=== PATIENT | female | born 1980 | race American Indian/Alaskan Native ===

== ENCOUNTER 2016-12-25 18:07 | Emergency (ER) | payer OTHER ==
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
[2016-12-26] MEDS ORDERED: TORADOL IM ONE (00:25)
[2016-12-26] MEDS ORDERED: TORADOL ONE (00:39)
[2016-12-26 00:50] VITALS: BP 115/87
== END 2016-12-26 00:50 | disposition home or self-care (01) ==
LOC: ED 18:07
DX: S16.1XXA Strain of muscle, fascia and tendon at neck level, initial encounter (principal); S39.012A Strain of muscle, fascia and tendon of lower back, initial encounter; G43.909 Migraine, unspecified, not intractable, without status migrainosus; F17.200 Nicotine dependence, unspecified, uncomplicated; V89.2XXA Person injured in unspecified motor-vehicle accident, traffic, initial encounter; Y93.9 Activity, unspecified; Y99.9 Unspecified external cause status; Y92.410 Unspecified street and highway as the place of occurrence of the external cause
CPT/HCPCS: 96372; 99282; J1885

== ENCOUNTER 2019-01-13 18:41 | Emergency (ER) | payer OTHER ==
[2019-01-13] MEDS ORDERED: ZOFRAN ODT PO ONE (18:44)
[2019-01-13] MEDS ORDERED: ZOFRAN ODT ONE (18:47)
--- NOTE | 2019-01-13 20:40 | Emergency Department Report ---
Blank Doc - Documentation Documentation: reports abdominal cramping nausea and vomiting . Ate multiple food yeaterday and woke up feeling sick. Abdominal pain epigastric area. 04/20. Vomiting several times throughout the day. Vomit 6 x while in ED. No diarrhea/ LMP 2-3 mos ago. usually irreg. No fever/chills. no urinary symptoms Nontoxic in apperance VSS, afeb received 8 mg zofran ODT in ed for nausea and vomiting Noted active vomiting in triage Labs, meds, INT
[2019-01-13] MEDS ORDERED: ALUM-MAG HYDROX-SIMETH 200-200-20MG/5ML PO ONE (20:43)
[2019-01-13] MEDS ORDERED: ZOFRAN IV ONE (20:43)
[2019-01-13] MEDS ORDERED: NACL 0.9% 1000 ML 1,000 ML IV ONE (20:43)
[2019-01-13] MEDS ORDERED: BENTYL PO ONE (20:43)
[2019-01-13] MEDS ORDERED: LIDOCAINE VISCOUS 2% PO ONE (20:43)
[2019-01-13 21:24] LABS: Basophils # (Auto) 0.1 K/mm3 (0.0-0.1); Basophils % (Auto) 0.4 % (0.0-1.8); Hematocrit 34.4 % (30.3-42.9); Lymphocytes % (Auto) 8.1 % (13.4-35.0); Mean Corpuscular HGB Conc 32 % (30-34); Mean Corpuscular Volume 73 fl (79-97); Monocytes # (Auto) 0.4 K/mm3 (0.0-0.8); Platelet Count 413 K/mm3 (140-440); Red Blood Count 4.73 M/mm3 (3.65-5.03); Red Cell Distribution Width 18.3 % (13.2-15.2)
[2019-01-13 21:42] LABS: Alanine Aminotransferase 11 units/L (7-56); Albumin 3.8 g/dL (3.9-5); BUN/Creatinine Ratio 21; Blood Urea Nitrogen 15 mg/dL (7-17); Calcium 9.7 mg/dL (8.4-10.2); Hemolysis Index 7
[2019-01-13] MEDS ORDERED: ALUM-MAG HYDROX-SIMETH 200-200-20MG/5ML ONE (23:05)
[2019-01-13] MEDS ORDERED: ZOFRAN ONE (23:06)
[2019-01-13 23:18] LABS: Bilirubin,Urine NEG (Negative); Blood,Urine NEG (Negative); Color,Urine Yellow (Yellow); Mucus,Urine FEW /HPF; Protein,Urine <15 mg/dL mg/dL (Negative); Urobilinogen,Urine < 2.0 mg/dL (<2.0)
[2019-01-13 23:25] LABS: HCG Qualitative,Urine Negative (Negative)
[2019-01-13] MEDS ORDERED: MORPHINE IV ONE (23:44)
[2019-01-13] MEDS ORDERED: PEPCID IV ONE (23:45)
[2019-01-14] MEDS ORDERED: REGLAN IV ONE (01:16)
[2019-01-14] MEDS ORDERED: BENADRYL IV ONE (01:16)
[2019-01-14] MEDS ORDERED: REGLAN ONE (01:18)
--- NOTE | 2019-01-14 01:24 | Emergency Department Report ---
ED N/V/D HPI - General Chief complaint: Abdominal Pain Stated complaint: ABDOMINAL PAIN/VOMITING Time Seen by Provider: 01/13/19 20:34 Source: patient Mode of arrival: Ambulatory Limitations: No Limitations - History of Present Illness Initial comments: Patient is a 38-year-old AA female with no past medical history who presents to the ED with complaint of acute onset of persistent intermittent nausea and vomiting for the last 24 hours worse in the last 6 hours with epigastric pain. Patient states that she cannot remember what she ate exactly but that she did a lot of food 24 hours ago. Patient states that no one else at home has had similar symptoms. Patient denies fever, chills, chest pain, shortness of breath, dizziness, headache, dysuria, urinary frequency and urgency, vaginal bleeding, vaginal discharge, back pain, change in vision or neck pain and sore throat. Patient states that she's not been able to keep anything down both liquids and solids for the last 12 hours. MD complaint: nausea, vomiting, abdominal pain -: Sudden, hour(s) (24) Description of Vomiting: food contents, watery, bilious Description of Diarrhea: other (None) Associated Abdominal Pain: Yes (EPIGASTRIC) Location: epigastric Radiation: none Severity: severe Pain Scale: 7 Quality: cramping, aching Improves with: none Worsens with: eating, vomiting Context: possible food poisoning Associated Symptoms: denies other symptoms, nausea/vomiting. denies: myalgias, chest pain, cough, diaphoresis, fever/chills, headaches, loss of appetite, malaise, rash, dysuria, shortness of breath, syncope, weakness - Related Data Previous Rx's Medication Instructions Recorded Last Taken Type Cyclobenzaprine [Flexeril] 10 mg PO TID PRN #30 tablet 12/26/16 Unknown Rx Naproxen [Naprosyn TAB] 500 mg PO BID PRN #60 tablet 12/26/16 Unknown Rx Dicyclomine [Bentyl] 20 mg PO Q6H #24 tablet 01/14/19 Unknown Rx Ondansetron [Zofran ODT TAB] 8 mg PO Q8HR #21 tab.rapdis 01/14/19 Unknown Rx Ranitidine HCl [Zantac] 150 mg PO Q12H #30 tablet 01/14/19 Unknown Rx metFORMIN [Glucophage] 500 mg PO Q12H #60 tablet 01/14/19 Unknown Rx Allergies Allergy/AdvReac Type Severity Reaction Status Date / Time No Known Allergies Allergy Verified 01/13/19 18:44 ED Review of Systems ROS: Stated complaint: ABDOMINAL PAIN/VOMITING Other details as noted in HPI Constitutional: denies: chills, fever Eyes: denies: eye pain, eye discharge, vision change ENT: denies: ear pain, throat pain Respiratory: denies: cough, shortness of breath, wheezing Cardiovascular: denies: chest pain, palpitations Endocrine: no symptoms reported Gastrointestinal: abdominal pain, nausea, vomiting. denies: diarrhea, hematemesis, hematochezia Genitourinary: denies: urgency, dysuria, discharge Musculoskeletal: denies: back pain, joint swelling, arthralgia Skin: denies: rash, lesions Neurological: denies: headache, weakness, paresthesias Psychiatric: denies: anxiety, depression Hematological/Lymphatic: denies: easy bleeding, easy bruising ED Past Medical Hx - Past Medical History Previous Medical History?: Yes Hx Headaches / Migraines: Yes - Surgical History Past Surgical History?: No - Social History Smoking Status: Current Every Day Smoker - Medications Home Medications: Home Medications Medication Instructions Recorded Confirmed Last Taken Type Cyclobenzaprine [Flexeril] 10 mg PO TID PRN #30 tablet 12/26/16 Unknown Rx Naproxen [Naprosyn TAB] 500 mg PO BID PRN #60 tablet 12/26/16 Unknown Rx Dicyclomine [Bentyl] 20 mg PO Q6H #24 tablet 01/14/19 Unknown Rx Ondansetron [Zofran ODT TAB] 8 mg PO Q8HR #21 tab.rapdis 01/14/19 Unknown Rx Ranitidine HCl [Zantac] 150 mg PO Q12H #30 tablet 01/14/19 Unknown Rx metFORMIN [Glucophage] 500 mg PO Q12H #60 tablet 01/14/19 Unknown Rx ED Physical Exam - General Limitations: No Limitations General appearance: alert, in no apparent distress - Head Head exam: Present: atraumatic, normocephalic, normal inspection - Eye Eye exam: Present: normal appearance, PERRL, EOMI. Absent: scleral icterus, conjunctival injection, nystagmus Pupils: Present: normal accommodation - ENT ENT exam: Present: normal exam, normal orophraynx, mucous membranes moist, TM's normal bilaterally, normal external ear exam - Neck Neck exam: Present: normal inspection, full ROM. Absent: tenderness - Respiratory Respiratory exam: Present: normal lung sounds bilaterally. Absent: respiratory distress, wheezes, rales, stridor, chest wall tenderness, accessory muscle use, decreased breath sounds, prolonged expiratory - Cardiovascular Cardiovascular Exam: Present: normal rhythm, bradycardia, normal heart sounds. Absent: systolic murmur, diastolic murmur, rubs, gallop - GI/Abdominal GI/Abdominal exam: Present: soft, tenderness (epigastric mildly), normal bowel sounds. Absent: distended, guarding, rebound, hyperactive bowel sounds, hypoa ctive bowel sounds, organomegaly - Rectal Rectal exam: Present: deferred - Extremities Exam Extremities exam: Present: normal inspection, full ROM, normal capillary refill - Back Exam Back exam: Present: normal inspection, full ROM. Absent: tenderness, CVA tenderness (L), muscle spasm, paraspinal tenderness, vertebral tenderness - Neurological Exam Neurological exam: Present: alert, oriented X3, CN II-XII intact, normal gait - Psychiatric Psychiatric exam: Present: normal affect, normal mood - Skin Skin exam: Present: warm, dry, intact, normal color. Absent: rash ED Course Vital Signs 01/13/19 01/13/19 19:47 23:59 Temperature 97.8 F 98.1 F Pulse Rate 56 L 55 L Respiratory 16 20 Rate Blood Pressure 124/62 Blood Pressure 115/59 [Right] O2 Sat by Pulse 100 100 Oximetry - Reevaluation(s) Reevaluation #1: 01/14/19 01:28 Patient is alert and oriented 3 and is not in distress. The vital signs are stable. Lab test results were reviewed and are unremarkable except for acute leukocytosis of 12,300, and hyperglycemia of 266 mg/dL with glucosuria. Patient however denies ever being diagnosed with type 2 diabetes. Patient received antiemetics and normal saline 1 L IV bolus, and also was treated with antacids. On reevaluation, patient's nausea and vomiting is resolved and patient was able to keep oral fluids in the ED. Patient was discharged home on anti-medics, antacids and pain medications and also given a prescription for metformin. Patient was advised to follow-up at [facility] for further reevaluation of her hyperglycemia suspected to be due to NIDDM. Patient was advised to maintain a clear liquid diet for 12-24 hours and to follow-up with the [facility] [place] for reevaluation. 01/14/19 01:29 ED Medical Decision Making - Lab Data Result diagrams: 01/13/19 21:05 01/13/19 21:05 - Medical Decision Making Patient is alert and oriented 3 and is not in distress. The vital signs are stable. Lab test results were reviewed and are unremarkable except for acute leukocytosis of 12,300, and hyperglycemia of 266 mg/dL with glucosuria. Patient however denies ever being diagnosed with type 2 diabetes. Patient received antiemetics and normal saline 1 L IV bolus, and also was treated with antacids. On reevaluation, patient's nausea and vomiting is resolved and patient was able to keep oral fluids in the ED. Patient was discharged home on anti-medics, antacids and pain medications and also given a prescription for metformin. Patient was advised to follow-up at [facility] for further reevaluation of her hyperglycemia suspected to be due to NIDDM. Patient was advised to maintain a clear liquid diet for 12-24 hours and to follow-up with the [facility] [place] for reevaluation. 01/14/19 01:29 - Differential Diagnosis Nausea and vomiting; Gastroenteritis; Gastritis; Hyperglycemia Critical care attestation.: If time is entered above; I have spent that time in minutes in the direct care of this critically ill patient, excluding procedure time. ED Disposition Clinical Impression: Nausea and vomiting in adult, Acute gastroenteritis, Acute hyperglycemia GERD (gastroesophageal reflux disease) Qualifiers: Esophagitis presence: without esophagitis Qualified Code(s): K21.9 - Gastro- esophageal reflux disease without esophagitis Disposition: - TO HOME OR SELFCARE Is pt being admited?: No Does the pt Need Aspirin: No Condition: Stable Instructions: Abdominal Pain (ED), Acute Nausea and Vomiting (ED), Gastroesophageal Reflux Disease (ED), Diabetic Hyperglycemia (ED) Additional Instructions: Maintain a clear liquid diet for 12-24 hours, and introduce solid foods slowly. Take medications for nausea and vomiting as well as antacids and pain medications. Follow-up with your primary care physician at [facility] promptly in the next 3-5 days for reevaluation. Return to the emergency department immediately for reevaluation if his symptoms get worse. Prescriptions: Dicyclomine [Bentyl] 20 mg PO Q6H #24 tablet metFORMIN [Glucophage] 500 mg PO Q12H #60 tablet Ranitidine HCl [Zantac] 150 mg PO Q12H #30 tablet Ondansetron [Zofran ODT TAB] 8 mg PO Q8HR #21 tab.erin Referrals: [facility] [Outside] - 3-5 Days Time of Disposition: 01:43 Print Language: CZECH
[2019-01-14 02:12] VITALS: BP 110/78
== END 2019-01-14 02:12 | disposition home or self-care (01) ==
LOC: ED 18:41
DX: K52.9 Noninfective gastroenteritis and colitis, unspecified (principal); R73.9 Hyperglycemia, unspecified; G43.909 Migraine, unspecified, not intractable, without status migrainosus; F17.200 Nicotine dependence, unspecified, uncomplicated; Z79.899 Other long term (current) drug therapy
CPT/HCPCS: 36415; 80053; 81001; 81025; 82962; 83690; 84484; 85025; 96374; 96375; 96376; 99284; J1200; J2270; J2405; J2765; J7030; Q0162